=== PATIENT | male | born 1995 | race Caucasian/White ===

== ENCOUNTER 2020-07-08 12:43 | Emergency (ER) | payer SELFPAY ==
--- NOTE | 2020-07-08 13:07 | ER ---
Nurse's Notes [facility]ly [facility] Name: Sean Pena Age: 24 yrs Sex: Male : 1995 Arrival Date: 07/08/2020 Time: 12:47 Bed 16 Private MD: Diagnosis: Unspecified sexually transmitted disease Presentation: 07/08 12:50 Chief complaint: Patient states: "I was with someone and they said they might be jd3 positive with chlamydia.". Coronavirus screen: At this time, the client does not indicate any symptoms associated with coronavirus-19. Ebola Screen: Patient negative for fever greater than or equal to 101.5 degrees Fahrenheit, and additional compatible Ebola Virus Disease symptoms. Initial Sepsis Screen: Does the patient meet any 2 criteria? No. Patient's initial sepsis screen is negative. Does the patient have a suspected source of infection? No. Patient's initial sepsis screen is negative. Risk Assessment: Do you want to hurt yourself or someone else? Patient reports no desire to harm self or others. Onset of symptoms was July 07, 2020. 12:50 Method Of Arrival: Ambulatory jd3 12:50 Acuity: ENID 4 jd3 Triage Assessment: 13:40 General: Appears in no apparent distress. Behavior is calm, cooperative. iw Historical: - Allergies: 12:52 No Known Allergies; jd3 - Home Meds: 12:52 None [Active]; jd3 - PMHx: 12:52 None; jd3 - PSHx: 12:52 None; jd3 - Immunization history:: Adult Immunizations up to date. - Social history:: Smoking status: Patient reports the use of cigarette tobacco products, smokes one pack cigarettes per day. Screenin:10 Nutritional screening: No deficits noted. Tuberculosis screening: No symptoms or risk iw factors identified. Fall Risk None identified. 13:40 Abuse screen: Denies threats or abuse. Denies injuries from another. iw Assessment: 13:10 General: Appears in no apparent distress. Behavior is calm, cooperative. Pain: Denies iw pain. Neuro: Level of Consciousness is awake, alert, obeys commands, Oriented to person, place, time, situation. Cardiovascular: Patient's skin is warm and dry. Respiratory: Respiratory effort is even, unlabored, Respiratory pattern is regular, symmetrical. GI: No signs and/or symptoms were reported involving the gastrointestinal system. : Reports burning with urination. Derm: Skin is intact, is healthy with good turgor. Musculoskeletal: Range of motion: intact in all extremities. Vital Signs: 12:52 BP 128 / 89; Pulse 91; Resp 15 S; Temp 97.5(R); Pulse Ox 99% on R/A; Weight 74.84 kg jd3 (R); Height 6 ft. 1 in. (185.42 cm) (R); Pain 0/10; 12:52 Body Mass Index 21.77 (74.84 kg, 185.42 cm) jd3 ED Course: 12:47 Patient arrived in ED. as 12:51 Triage completed. jd3 12:52 Arm band placed on. jd3 12:53 Dina Howell, RN is Primary Nurse. iw 12:55 Sarah Gilliland FNP-C is PHCP. kb 12:55 Babak Martines MD is Attending Physician. kb 13:10 Patient has correct armband on for positive identification. iw 13:40 No provider procedures requiring assistance completed. Patient did not have IV access iw during this emergency room visit. Administered Medications: 13:29 Drug: Zithromax 1 grams Route: PO; iw 13:30 Drug: Rocephin (cefTRIAXone) 250 mg Route: IM; Site: left deltoid; iw Outcome: 13:07 Discharge ordered by . kb 13:40 Discharged to home ambulatory. iw 13:40 Condition: good 13:40 Discharge instructions given to patient, Instructed on discharge instructions, follow up and referral plans. safe sex practices, Demonstrated understanding of instructions, follow-up care. 13:41 Patient left the ED. iw Signatures: Sarah Gilliland FNP-C TWINE WINDER-Madison Serrano as Dina Howell, RN EHSAN iw Neri Hester RN RN j
--- NOTE | 2020-07-08 13:07 | EDPHYS ---
Physician Documentation [facility] Name: Sean Pena Age: 24 yrs Sex: Male : 1995 Arrival Date: 07/08/2020 Time: 12:47 Bed 16 Private MD: ED Physician Babak Martines HPI: 07/08 13:25 This 24 yrs old Male presents to ER via Ambulatory with complaints of STD kb Exposure. 13:25 The patient presents with a known STD exposure, with a history of engaging in sex with kb a single partner, did not use protection, symptoms include dysuria. Onset: The symptoms/episode began/occurred yesterday. Modifying factors: The symptoms are alleviated by nothing, the symptoms are aggravated by urinating. Associated signs and symptoms: Pertinent positives: dysuria, Pertinent negatives: abdominal pain, constipation, diarrhea, fever, hematuria, nausea, vomiting. Severity of symptoms: At their worst the symptoms were very mild, in the emergency department the symptoms are unchanged. The patient has not experienced similar symptoms in the past. The patient has not recently seen a physician. Pt reports his sexual partner told him she tested positive for chlamydia and that he needed to get tested. Pt reports dysuria once last night. Denies penile discharge. . Historical: - Allergies: 12:52 No Known Allergies; jd3 - Home Meds: 12:52 None [Active]; jd3 - PMHx: 12:52 None; jd3 - PSHx: 12:52 None; jd3 - Immunization history:: Adult Immunizations up to date. - Social history:: Smoking status: Patient reports the use of cigarette tobacco products, smokes one pack cigarettes per day. ROS: 13:24 Constitutional: Negative for fever, chills, and weight loss, Cardiovascular: Negative kb for chest pain, palpitations, and edema, Respiratory: Negative for shortness of breath, cough, wheezing, and pleuritic chest pain, Abdomen/GI: Negative for abdominal pain, nausea, vomiting, diarrhea, and constipation, Back: Negative for injury and pain, MS/Extremity: Negative for injury and deformity, Skin: Negative for injury, rash, and discoloration, Neuro: Negative for headache, weakness, numbness, tingling, and seizure. 13:24 : Positive for burning with urination. Exam: 13:24 Constitutional: This is a well developed, well nourished patient who is awake, alert, kb and in no acute distress. Head/Face: Normocephalic, atraumatic. Chest/axilla: Normal chest wall appearance and motion. Nontender with no deformity. No lesions are appreciated. Cardiovascular: Regular rate and rhythm with a normal S1 and S2. No gallops, murmurs, or rubs. Normal PMI, no JVD. No pulse deficits. Respiratory: Lungs have equal breath sounds bilaterally, clear to auscultation and percussion. No rales, rhonchi or wheezes noted. No increased work of breathing, no retractions or nasal flaring. Abdomen/GI: Soft, non-tender, with normal bowel sounds. No distension or tympany. No guarding or rebound. No evidence of tenderness throughout. Skin: Warm, dry with normal turgor. Normal color with no rashes, no lesions, and no evidence of cellulitis. MS/ Extremity: Pulses equal, no cyanosis. Neurovascular intact. Full, normal range of motion. Neuro: Awake and alert, GCS 15, oriented to person, place, time, and situation. Cranial nerves II-XII grossly intact. Motor strength 5/5 in all extremities. Sensory grossly intact. Cerebellar exam normal. Normal gait. Vital Signs: 12:52 BP 128 / 89; Pulse 91; Resp 15 S; Temp 97.5(R); Pulse Ox 99% on R/A; Weight 74.84 kg jd3 (R); Height 6 ft. 1 in. (185.42 cm) (R); Pain 0/10; 12:52 Body Mass Index 21.77 (74.84 kg, 185.42 cm) jd3 MDM: 12:55 Patient medically screened. kb 13:24 Data reviewed: vital signs, nurses notes. Data interpreted: Pulse oximetry: on room air kb is 99 %. Interpretation: normal. Counseling: I had a detailed discussion with the patient and/or guardian regarding: the historical points, exam findings, and any diagnostic results supporting the discharge/admit diagnosis, the need for outpatient follow up, a family practitioner, to return to the emergency department if symptoms worsen or persist or if there are any questions or concerns that arise at home. Administered Medications: 13:29 Drug: Zithromax 1 grams Route: PO; iw 13:30 Drug: Rocephin (cefTRIAXone) 250 mg Route: IM; Site: left deltoid; Disposition: 14:22 Co-signature as Attending Physician, Babak Martines MD. rn Disposition: 07/08/20 13:07 Discharged to Home. Impression: Unspecified sexually transmitted disease. - Condition is Stable. - Discharge Instructions: Sexually Transmitted Disease, [id number]. - Medication Reconciliation Form, Thank You Letter, Antibiotic Education, Prescription Opioid Use form. - Follow up: Emergency Department; When: As needed; Reason: Worsening of condition. Follow up: Private Physician; When: 2 - 3 days; Reason: Recheck today's complaints, Continuance of care, Re-evaluation by your physician. Signatures: Sarah Gilliland, VADIM-C CLERK [employer]-Jacintob Dina Howell RN RN iw Nieto, Roman, MD MD rn Davies, Jonathon, RN RN jd3 Corrections: (The following items were deleted from the chart) 13:41 13:07 07/08/2020 13:07 Discharged to Home. Impression: Unspecified sexually transmitted iw disease. Condition is Stable. Forms are Medication Reconciliation Form, Thank You Letter, Antibiotic Education, Prescription Opioid Use. Follow up: Emergency Department; When: As needed; Reason: Worsening of condition. Follow up: Private Physician; When: 2 - 3 days; Reason: Recheck today's complaints, Continuance of care, Re-evaluation by your physician. kb
[2020-07-08] MEDS ORDERED: LIDOCAINE 1% MPF 5 ML VIAL ONE (13:38)
[2020-07-08] MEDS ORDERED: CEFTRIAXONE 250 MG/VIAL ONE (13:38)
[2020-07-08] MEDS ORDERED: AZITHROMYCIN 250 MG TAB ONE (13:38)
[2020-07-08 13:46] VITALS: BP 128/89; TEMP 97.5; O2SAT 99
== END 2020-07-08 13:41 | disposition home or self-care (01) ==
LOC: ER 12:43
DX: A64 Unspecified sexually transmitted disease (principal); F17.210 Nicotine dependence, cigarettes, uncomplicated
CPT/HCPCS: 96372; 99283; J0696